=== PATIENT | male | born 1950 | race Caucasian/White ===

== ENCOUNTER 2020-03-13 16:17 | Emergency (ER) | payer MEDICARE, MEDICAID ==
--- NOTE | 2020-03-13 17:21 | EDM.PDOC ---
<Rick Traore - Last Filed: 03/13/20 17:15> ED HPI GENERAL MEDICAL PROBLEM - General Chief Complaint: General Stated Complaint: STOMACH ISSUES Time Seen by Provider: 03/13/20 16:55 Source of Information: Reports: Patient, Family History Limitations: Reports: No Limitations - History of Present Illness INITIAL COMMENTS - FREE TEXT/NARRATIVE: 69-year-old male with COPD, chronic obesity and peripheral edema presents with concerns of increased abdominal girth, shortness of breath and decreased activity tolerance. Today he was at his daughter's when he had a spell of lightheadedness, he appeared ashen and was dizzy so she brought him in. He has not seen a doctor in a long time because he was worried about getting Covid. He is very sedentary, gets very little activity. He quit smoking 5 years ago and has not drank alcohol in 1 month. He has no significant pain but just bending over to feed his cats he gets winded. This morning when he had his lightheaded spell his daughter gave him 3 pieces of chocolate and it "helped". He now feels back to baseline. He has been told that he is borderline diabetic Onset: Gradual Duration: Week(s): (Symptoms have been worsening for weeks) Location: Reports: Chest, Abdomen Worsens with: Reports: Other (Activity or bending over causes increased shortness of breath), Movement Associated Symptoms: Reports: Malaise, Shortness of Breath, Weakness, Other (Had a near syncopal episode today). Denies: Chest Pain, Cough, Fever/Chills - Related Data Allergies Allergy/AdvReac Type Severity Reaction Status Date / Time codeine AdvReac Nausea Verified 03/13/20 16:50 Home Meds: Home Meds Albuterol Sulfate 2.5 mg IH Q6H PRN 03/13/20 [History] Albuterol [Ventolin HFA] 2 puff INH Q4H PRN 03/13/20 [History] Aspirin [Adult Low Dose Aspirin EC] 81 mg PO DAILY 03/13/20 [History] Budesonide [Pulmicort Flexhaler] 2 puff IH BID 03/13/20 [History] Chlorthalidone 25 mg PO DAILY 03/13/20 [History] Fluticasone Propionate [Flonase Allergy Relief] 2 spray INH DAILY 03/13/20 [History] Ipratropium/Albuterol Sulfate [Iprat-Albut 0.5-3(2.5) MG/3 ML] 3 ml INH Q6H PRN 03/13/20 [History] Pravastatin [Pravachol] 80 mg PO BEDTIME 03/13/20 [History] Umeclidinium Brm/Vilanterol Tr [Anoro Ellipta 62.5-25 MCG] 1 each IH DAILY 03/13/20 [History] lisinopriL [Lisinopril] 10 mg PO DAILY 03/13/20 [History] metFORMIN [Glucophage XR] 500 mg PO DAILY 03/13/20 [History] tiZANidine HCl [Zanaflex] 4 mg PO Q8H PRN 03/13/20 [History] Past Medical History HEENT History: Reports: Impaired Vision Cardiovascular History: Reports: High Cholesterol, Hypertension Respiratory History: Reports: COPD, Sleep Apnea Musculoskeletal History: Reports: Fracture Psychiatric History: Reports: Anxiety Endocrine/Metabolic History: Reports: Diabetes, Type II, Obesity/BMI 30+ - Past Surgical History GI Surgical History: Reports: Colonoscopy Musculoskeletal Surgical History: Reports: Knee Replacement Other Musculoskeletal Surgeries/Procedures:: c6-c7 spinal surgery Social & Family History - Recreational Drug Use Recreational Drug Use: No ED ROS GENERAL - Review of Systems Review Of Systems: See Below Constitutional: Reports: Malaise. Denies: Fever, Chills HEENT: Reports: No Symptoms Respiratory: Reports: Shortness of Breath (Especially with activity) Cardiovascular: Denies: Chest Pain, Palpitations GI/Abdominal: Reports: Other (Abdomen feels distended, bloated). Denies: Constipation, Diarrhea, Nausea, Vomiting : Reports: No Symptoms Skin: Reports: No Symptoms Neurological: Reports: No Symptoms ED EXAM, GENERAL - Physical Exam Exam: See Below Free Text/Narrative:: Looks moderately obese, no active dyspnea while sitting still. Exam Limited By: No Limitations General Appearance: Alert, No Apparent Distress Eye Exam: Bilateral Eye: Normal Inspection Head: Atraumatic Respiratory/Chest: No Respiratory Distress, Decreased Breath Sounds (Diffuse decreased breath sounds but they are symmetric and there is no rales or rhonchi at the bases) Cardiovascular: Regular Rate, Rhythm, Tachycardia (Mild tachycardia) GI/Abdominal: Normal Bowel Sounds, Soft, Non-Tender, Distended (Abdomen does feel bloated or distended with palpation), Other (A broad ventral hernia is present). No: Guarding Extremities: Pedal Edema (Patient has 1+ pitting edema to the ankles which is symmetric) Neurological: Alert, Oriented, No Motor/Sensory Deficits Psychiatric: Normal Affect, Normal Mood Skin Exam: Warm, Dry Course - Re-Assessments/Exams Free Text/Narrative Re-Assessment/Exam: 03/13/20 17:22 A [id number] ultrasound was done which showed no intra-abdominal ascites. CBC, CMP, D-dimer were obtained as well as a two-view chest x-ray and flat and upright abdomen. Other than just general deconditioning, pulmonary emboli are concerning. Departure - Departure Disposition: Home, Self-Care 01 Clinical Impression: Dyspnea on exertion - Discharge Information Referrals: Kylah Burton MD [Primary Care Provider] - Forms: ED Department Discharge Additional Instructions: Your work up today did not show anything new going on. See your doctor to get medically cleared to begin an exercise program. Weight loss may benefit you as well. Avoid salt or salty foods. Continue your current meds. Sepsis Event Note (ED) - Evaluation Sepsis Screening Result: No Definite Risk <Jonatan Ely G - Last Filed: 03/13/20 19:22> Course - Vital Signs Last Recorded V/S: Last Vital Signs Temp 36.2 C 03/13/20 16:49 Pulse 107 H 03/13/20 18:36 Resp 20 03/13/20 18:36 BP 108/73 03/13/20 18:36 Pulse Ox 94 L 03/13/20 18:36 - Orders/Labs/Meds Orders: Active Orders 24 hr Category Date Time Status Abdomen 2V AP Flat Upright [CR] Stat Exams 03/13/20 17:10 Taken Chest 2V [CR] Stat Exams 03/13/20 17:10 Taken Iopamidol [Isovue-370 (76%)] Med 03/13/20 18:45 Active 100 ml IV . DIRECTED Sodium Chloride 0.9% [Normal Saline] 100 ml Med 03/13/20 18:45 Active IV ASDIRECTED Medication Orders Sodium Chloride (Normal Saline) 100 mls @ 3 mls/sec IV ASDIRECTED SHAE Last Admin: 03/13/20 18:59 Dose: 3 mls/sec Documented by: CHRISTINA Iopamidol (Isovue-370 (76%)) 100 ml IV . DIRECTED SHAE Last Admin: 03/13/20 18:59 Dose: 100 ml Documented by: CHRISTINA Labs: Laboratory Tests 03/13/20 03/13/20 03/13/20 Range/Units 17:22 17:22 17:33 WBC 8.6 (4.5-11.0) K/uL RBC 5.00 (4.30-5.90) M/uL Hgb 14.9 (12.0-15.0) g/dL Hct 46.8 (40.0-54.0) % MCV 94 (80-98) fL MCH 30 (27-31) pg MCHC 32 (32-36) % Plt Count 191 (150-400) K/uL Neut % (Auto) 63 (36-66) % Lymph % (Auto) 19 L (24-44) % [place] % (Auto) 13 H (2-6) % Eos % (Auto) 5 H (2-4) % Baso % (Auto) 0 (0-1) % D-Dimer, Quantitative 909.08 H (0.0-500.0) ng/mL Sodium 134 L (140-148) mmol/L Potassium 3.9 (3.6-5.2) mmol/L Chloride 98 L (100-108) mmol/L Carbon Dioxide 25 (21-32) mmol/L Anion Gap 14.9 H (5.0-14.0) mmol/L BUN 27 H (7-18) mg/dL Creatinine 1.1 (0.8-1.3) mg/dL Est Cr Clr Drug Dosing 65.17 mL/min Estimated GFR (MDRD) > 60 (>60) Glucose 125 H (74-106) mg/dL Calcium 9.0 (8.5-10.1) mg/dL Total Bilirubin 0.6 (0.2-1.0) mg/dL AST 28 (15-37) U/L ALT 39 (12-78) U/L Alkaline Phosphatase 75 (46-116) U/L Total Protein 7.3 (6.4-8.2) g/dL Albumin 3.8 (3.4-5.0) g/dL Globulin 3.5 (2.3-3.5) g/dL Albumin/Globulin Ratio 1.1 L (1.2-2.2) Meds: Medications Generic Name Dose Route Start Last Admin Trade Name Raghu PRN Reason Stop Dose Admin Sodium Chloride 100 mls @ 3 mls/sec 03/13/20 18:45 03/13/20 18:59 Normal Saline IV 3 mls/sec ASDIRECTED SHAE Administration Iopamidol 100 ml 03/13/20 18:45 03/13/20 18:59 Isovue-370 (76%) IV 100 ml . DIRECTED SHAE Administration Discontinued Medications Generic Name Dose Route Start Last Admin Trade Name Raghu PRN Reason Stop Dose Admin Sodium Chloride 10 ml 03/13/20 18:33 03/13/20 18:59 Saline Flush FLUSH 03/13/20 18:34 10 ml ONETIME ONE Administration - Radiology Interpretation Free Text/Narrative:: CT angio chest-no PE, some emphysema present Departure - Departure Time of Disposition: 19:20 Condition: Fair - Discharge Information *PRESCRIPTION DRUG MONITORING PROGRAM REVIEWED*: No *COPY OF PRESCRIPTION DRUG MONITORING REPORT IN PATIENT VIRGEN: No Sepsis Event Note (ED) - Focused Exam Vital Signs: Vital Signs Temp Pulse Resp BP Pulse Ox 03/13/20 18:36 107 H 20 108/73 94 L 03/13/20 16:49 36.2 C 116 H 20 146/87 H 94 L 03/13/20 16:45 36.2 C 116 H 20 146/87 H 94 L - My Orders Last 24 Hours: My Active Orders 03/13/20 18:45 Iopamidol [Isovue-370 (76%)] 100 ml IV . DIRECTED Sodium Chloride 0.9% [Normal Saline] 100 ml IV ASDIRECTED - Assessment/Plan Last 24 Hours: My Active Orders 03/13/20 18:45 Iopamidol [Isovue-370 (76%)] 100 ml IV . DIRECTED Sodium Chloride 0.9% [Normal Saline] 100 ml IV ASDIRECTED
[2020-03-13] MEDS ORDERED: Sodium Chloride 0.9% 10 ML Syringe FLUSH ONE (18:33)
[2020-03-13] MEDS ORDERED: Sodium Chloride 0.9% 100 ML IV SCH (18:45)
[2020-03-13] MEDS ORDERED: Iopamidol 755 Mg/ML 100 ML Bottle IV SCH (18:45)
--- NOTE | 2020-03-13 19:19 | CRLCT ---
INDICATION: Dyspnea COMPARISON: None TECHNIQUE: : CT examination of the chest was performed with the uneventful intravenous administration of 100 cc of Isovue 370 while thin axial sections were obtained from above the apices of the lungs to the lung bases. Please note that all CT scans at this facility use dose modulation, iterative reconstruction, and/or weight-based dosing when appropriate to reduce radiation dose to as low as reasonably achievable. FINDINGS: : HEART and MEDIASTINUM: The heart size is normal. There is no mediastinal or hilar adenopathy or mass. There is no pericardial effusion. PULMONARY ARTERIAL CIRCULATION: There is no visible intraluminal filling defect to suggest pulmonary embolus. LUNGS: Moderate to severe upper lobe predominant emphysema. Areas of volume loss on the right especially at the medial right base in the medial segment of the right middle lobe. Of a jha the left hemidiaphragm. Associated volume loss at the left base. Evidence of remote granulomatous infection. PLEURAL SPACES: There is no pleural effusion, pneumothorax or pleural based mass. VISUALIZED UPPER ABDOMEN: Macroscopic nodularity of the liver probably due to cirrhosis. Cholelithiasis. Further evaluation liver recommended at a clinically appropriate time OSSEOUS STRUCTURES: Age-appropriate appearance. No acute fracture or destructive process. TUBES and LINES: None. IMPRESSION: 1. There is no finding of pulmonary embolus. 2. Emphysema. 3. Areas of volume loss at the bases. No focal consolidation or mass. 4. Evidence of remote granulomatous infection. Please note that all CT scans at this facility use dose modulation, iterative reconstruction, and/or weight-based dosing when appropriate to reduce radiation dose to as low as reasonably achievable. Dictated by Ankur Downing MD @ Mar 13 2020 7:05PM Signed by Dr. Ankur Downing @ Mar 13 2020 7:18PM
--- NOTE | 2020-03-16 10:54 | CR ---
CHEST: 2 view CLINICAL HISTORY:Dyspnea COMPARISON:None FINDINGS: There is elevation of the left hemidiaphragm. This is likely chronic. There is some patchy density at the left lung base which may represent some chronic atelectasis and/or pleural parenchymal scarring. Heart size and pulmonary vascularity are normal. There are atherosclerotic changes in the aorta. Nodule seen near the dome of the left hemidiaphragm is likely a granulomatous calcification. IMPRESSION: Chronic elevation of the left hemidiaphragm Patchy bibasal atelectasis.
--- NOTE | 2020-03-16 10:55 | CR ---
Abdomen 2V AP Flat Upright CLINICAL HISTORY: Dyspnea FINDINGS: There is chronic elevation left hemidiaphragm. No free air is identified. Intestinal gas pattern is nonacute. There are degenerative changes in the lumbar spine IMPRESSION: Nonspecific intestinal gas pattern
== END 2020-03-13 19:33 | disposition home or self-care (01) ==
LOC: JP.ED 16:17
DX: R06.02 Shortness of breath (principal); R53.1 Weakness; R53.81 Other malaise; E11.9 Type 2 diabetes mellitus without complications; E66.9 Obesity, unspecified; I10 Essential (primary) hypertension; E78.00 Pure hypercholesterolemia, unspecified; J44.9 Chronic obstructive pulmonary disease, unspecified; Z88.5 Allergy status to narcotic agent; Z79.82 Long term (current) use of aspirin; Z79.84 Long term (current) use of oral hypoglycemic drugs; Z79.899 Other long term (current) drug therapy; Z68.35 Body mass index [BMI] 35.0-35.9, adult
CPT/HCPCS: 36415; 71046; 71275; 74019; 80053; 85025; 85379; 99283; 99285; Q9967

== ENCOUNTER 2020-10-09 07:48 | Day surgery (SDC) | payer MEDICARE, MEDICAID ==
[~2020-10-09 07:48] MED LIST: Midazolam 1 MG/ML 2 ML SDV ONE; Propofol 200 MG/20 ML SDV ONE; fentaNYL 100 MCG/2 ML SDV ONE
[2020-10-09] MEDS ORDERED: Sodium Chloride 0.9% 1,000 ML IV SCH (08:30)
--- NOTE | 2020-10-09 14:46 | OR ---
DATE OF PROCEDURE: 10/09/2020 SURGEON: Giovany Galdamez MD PROCEDURES PERFORMED: 1. Esophagogastroduodenoscopy. 2. Colonoscopy. FINDINGS: 1. No gross abnormalities. 2. Normal colonoscopy. COMPLICATIONS: None. SPOOLER OPERATOR: None. PREOPERATIVE DIAGNOSES: 1. Nausea. 2. Screening colonoscopy. POSTOPERATIVE DIAGNOSES: 1. Nausea. 2. Screening colonoscopy. RISKS: The risks, benefits, alternatives, and limitations including, but not limited to infection, bleeding, perforation, false positives, and false negatives were explained to the patient who wished to proceed. PROCEDURE IN DETAIL: The patient was placed in the left lateral decubitus position. The EGD scope was introduced and advanced atraumatically to the second part of the duodenum. No evidence of duodenitis or ulceration was noted. No old or new blood. No significant abnormalities at the GE junction. No retained food. The esophagus was inspected without abnormality. A colonoscopy was then performed next. A digital rectal exam was performed without abnormality. The scope was introduced and advanced atraumatically to the ileocecal valve. A photo was taken of the appendiceal orifice. The scope was brought back through the ascending, transverse, descending colon, and retroflexed. No evidence of old or new blood. No masses. The patient was noted to have a few scattered diverticula. No evidence of diverticulitis or bleeding. No abnormalities on retroflex. Greater than 8 minutes was spent removing the scope. The patient tolerated the procedure well. Giovany Galdamez MD /[id number]
== END 2020-10-09 10:55 | disposition home or self-care (01) ==
LOC: JP.SDS 07:48
PROVIDERS: ATTEND Surgery
DX: Z12.11 Encounter for screening for malignant neoplasm of colon (principal); K57.30 Diverticulosis of large intestine without perforation or abscess without bleeding; I10 Essential (primary) hypertension; R11.0 Nausea; Z88.8 Allergy status to other drugs, medicaments and biological substances; Z86.010 Personal history of colon polyps
CPT/HCPCS: 43235; G0105; J2250; J2704; J3010; J7030

== ENCOUNTER 2023-07-27 08:35 | Observation (INO) | payer MEDICARE, MEDICAID ==
[2023-07-27 09:01] LABS: HEMATOCRIT 41.1 % (38.4-49.7); HEMOGLOBIN 14.2 g/dL (12.9-16.9); MEAN CORPUSCULAR HGB CONC 34.5 g/dL (31.6-35.5); MEAN CORPUSCULAR VOLUME 92.6 fL (81.4-99.0); PLATELET COUNT,PLT 346 K/uL (130-375); RED BLOOD CELL COUNT 4.44 M/uL (4.14-5.76); WHITE BLOOD CELL COUNT,WBC 13.4 K/uL (3.2-11.0)
[2023-07-27 09:17] LABS: INR 1.1; PROTHROMBIN TIME 10.9 sec (9.2-10.6)
[2023-07-27 09:26] LABS: A/G RATIO 0.7 (1.2-2.2); ALANINE AMINOTRANSFERASE,ALT 53 U/L (12-78); ALBUMIN 3.1 g/dL (3.4-5.0); ALKALINE PHOSPHATASE 72 U/L (46-116); ASPARTATE AMNIOTRANSFERASE,AST 31 U/L (15-37); BAND PERCENT MAN 6 % (5-11); BILIRUBIN TOTAL 2.7 mg/dL (0.2-1.0); BLOOD UREA NITROGEN,BUN 30 mg/dL (7-18); CALCIUM 9.2 mg/dL (8.5-10.1); CARBON DIOXIDE,CO2 28 mmol/L (21-32); CHLORIDE,CL 95 mmol/L (100-108); CREATININE 0.7 mg/dL (0.8-1.3); EOSINOPHILS ABSOLUTE MAN 0.27 K/uL (0.00-0.40); EOSINOPHILS PERCENT MAN 2 % (2-4); ESTIMATED GFR 99 mL/min (>60); GLUCOSE RANDOM 119 mg/dL (74-106); LYMPHOCYTES ABSOLUTE MAN 1.07 K/uL (0.8-3.3); LYMPHOCYTES PERCENT MAN 8 % (24-44); MONOCYTES ABSOLUTE MAN 0.54 K/uL (0.20-0.90); MONOCYTES PERCENT MAN 4 % (2-6); NEUTROPHILS ABSOLUTE MAN 10.72 K/uL (1.0-7.6); POTASSIUM,K 3.7 mmol/L (3.6-5.2); PROTEIN TOTAL,TP 7.5 g/dL (6.4-8.2); SEG NEUTROPHILS PERCENT MAN 80 % (36-66); SODIUM,NA 132 mmol/L (140-148)
[2023-07-27 09:36] LABS: ANION GAP 12.7 mmol/L (5.0-14.0)
[2023-07-27 09:50] LABS: APPEARANCE,URINE SLIGHTLY CLOUDY (CLEAR); BILIRUBIN,URINE SMALL (NEGATIVE); COLOR,URINE OTHER (YELLOW); GLUCOSE,URINE NEGATIVE (NEGATIVE); KETONES,URINE 40 mg/dL (NEGATIVE); LEUKOCYTE ESTERASE,URINE NEGATIVE (NEGATIVE); NITRITE,URINE NEGATIVE (NEGATIVE); OCCULT BLOOD,URINE NEGATIVE (NEGATIVE); PROTEIN,URINE NEGATIVE (NEGATIVE); UROBILINOGEN,URINE 0.2 EU/dL (0.2-1.0)
[2023-07-27] MEDS: Sodium Chloride 0.9% 1,000 ML IV SCH ×2 (09:56→16:22)
[2023-07-27 09:59] LABS: AMORPHOUS SEDIMENT,URINE RARE; BACTERIA,URINE RARE; EPITHELIAL CELLS,URINE NOT SEEN; MUCUS,URINE RARE; RBC,URINE 0-5 (0-5); WBC,URINE 0-5 (0-5)
[2023-07-27] MEDS ORDERED: Albuterol 0.083% 2.5 MG/3 ML Neb Soln NEB PRN (15:48)
[2023-07-27] MEDS ORDERED: Ondansetron 4 MG/2 ML SDV IV PRN (15:48)
[2023-07-27] MEDS ORDERED: Magnesium Hydroxide 400 MG/5 ML Susp 30 ML Cup PO PRN (15:48)
[2023-07-27] MEDS ORDERED: Ondansetron 4 MG Tab.DIS PO PRN (15:48)
[2023-07-27] MEDS ORDERED: Sennosides/Docusate Sodium 50-8.6 MG Tab PO PRN (15:48)
[2023-07-27] MEDS ORDERED: Non-Formulary Medication 1 Each (Budesonide [Pulmicort Flexhaler] 180 MCG Inhaler) IH SCH (21:00)
[2023-07-27] MEDS: oxyCODONE 5 MG Tab PO PRN (21:27)
[2023-07-27] MEDS: Acetaminophen 325 MG Tab PO PRN (21:27)
[2023-07-27] MEDS: Budesonide 0.5 MG/2 ML Neb Susp INH ONE (21:28)
[2023-07-28 05:06] LABS: HEMOGLOBIN 13.7 g/dL (12.9-16.9); MEAN CORPUSCULAR HEMOGLOBIN 31.5 pg (31.6-35.5); MEAN CORPUSCULAR HGB CONC 33.4 g/dL (31.6-35.5); MEAN CORPUSCULAR VOLUME 94.3 fL (81.4-99.0); RED BLOOD CELL COUNT 4.35 M/uL (4.14-5.76); WHITE BLOOD CELL COUNT,WBC 11.6 K/uL (3.2-11.0)
[2023-07-28 05:16] LABS: A/G RATIO 0.7 (1.2-2.2); ALANINE AMINOTRANSFERASE,ALT 42 U/L (12-78); ALBUMIN 2.8 g/dL (3.4-5.0); ALKALINE PHOSPHATASE 66 U/L (46-116); ASPARTATE AMNIOTRANSFERASE,AST 33 U/L (15-37); BILIRUBIN TOTAL 1.7 mg/dL (0.2-1.0); BLOOD UREA NITROGEN,BUN 25 mg/dL (7-18); CALCIUM 8.5 mg/dL (8.5-10.1); CARBON DIOXIDE,CO2 28 mmol/L (21-32); CHLORIDE,CL 98 mmol/L (100-108); CREATININE 0.6 mg/dL (0.8-1.3); EST CRCL DRUG DOSING (CG) 110.83 mL/min; ESTIMATED GFR 104 mL/min (>60); GLUCOSE RANDOM 108 mg/dL (74-106); PROTEIN TOTAL,TP 6.8 g/dL (6.4-8.2); SODIUM,NA 132 mmol/L (140-148)
[2023-07-28] MEDS ORDERED: Sennosides 8.6 MG Tab PO SCH (09:00)
[2023-07-28] MEDS ORDERED: Magnesium Oxide 400 MG Tab PO SCH (09:00)
[2023-07-28] MEDS ORDERED: Non-Formulary Medication 1 Each (Omeprazole [Omeprazole] 20 MG Cap.Cr) PO SCH (09:00)
[2023-07-28] MEDS ORDERED: Aspirin 81 MG Tab.EC PO SCH (09:00)
[2023-07-28] MEDS ORDERED: Escitalopram 10 MG Tab PO SCH (09:00)
[2023-07-28] MEDS ORDERED: Lisinopril 10 MG Tab PO SCH (09:00)
[2023-07-28] MEDS ORDERED: Non-Formulary Medication 1 Each (Umeclidinium Brm/Vilanterol Tr [Anoro Ellipta 62.5-25 Mcg INH SCH (09:00)
== END 2023-07-28 08:30 | disposition home or self-care (01) ==
LOC: JP.ED 08:35 → JP.MS 14:43
PROVIDERS: ADMIT Internal Medicine; ATTEND Internal Medicine
DX: R53.1 Weakness (principal); M48.061 Spinal stenosis, lumbar region without neurogenic claudication; I10 Essential (primary) hypertension; E11.9 Type 2 diabetes mellitus without complications; J44.9 Chronic obstructive pulmonary disease, unspecified; K21.9 Gastro-esophageal reflux disease without esophagitis; F32.A Depression, unspecified; Z79.899 Other long term (current) drug therapy; Z88.5 Allergy status to narcotic agent
CPT/HCPCS: 36415; 51702; 71045; 72040; 72125; 76377; 80053; 81001; 82550; 85025; 85027; 85610; 93005; 94640; 96360; 99285; A9270; J7030; 96361; G0378

== ENCOUNTER 2023-10-10 15:56 | Inpatient (IN) | payer MEDICARE, MEDICAID ==
[2023-10-10 16:57] LABS: BASOPHILS ABSOLUTE AUTO 0.04 K/uL (0.00-0.10); BASOPHILS PERCENT AUTO 0.5 % (0.1-1.3); EOSINOPHILS ABSOLUTE AUTO 0.71 K/uL (0.00-0.40); EOSINOPHILS PERCENT AUTO 9.1 % (0.0-5.4); HEMATOCRIT 37.4 % (38.4-49.7); HEMOGLOBIN 12.8 g/dL (12.9-16.9); IMMATURE GRAN ABSOLUTE AUTO 0.03 K/uL (0.00-0.23); IMMATURE GRAN PERCENT AUTO 0.4 % (0.0-0.7); LYMPHOCYTES PERCENT AUTO 17.9 % (11.4-47.7); MEAN CORPUSCULAR HEMOGLOBIN 30.3 pg (31.6-35.5); MEAN CORPUSCULAR HGB CONC 34.2 g/dL (31.6-35.5); MEAN CORPUSCULAR VOLUME 88.4 fL (81.4-99.0); MONOCYTES ABSOLUTE AUTO 1.01 K/uL (0.20-0.90); MONOCYTES PERCENT AUTO 12.9 % (3.3-12.6); NEUTROPHILS ABSOLUTE AUTO 4.62 K/uL (1.0-7.6); NEUTROPHILS PERCENT AUTO 59.2 % (40.0-78.1); PLATELET COUNT,PLT 231 K/uL (130-375); RED BLOOD CELL COUNT 4.23 M/uL (4.14-5.76); WHITE BLOOD CELL COUNT,WBC 7.8 K/uL (3.2-11.0)
[2023-10-10 17:17] LABS: ALANINE AMINOTRANSFERASE,ALT 28 U/L (12-78); ALBUMIN 3.6 g/dL (3.4-5.0); ALKALINE PHOSPHATASE 77 U/L (46-116); ASPARTATE AMNIOTRANSFERASE,AST 31 U/L (15-37); BLOOD UREA NITROGEN,BUN 8 mg/dL (7-18); CREATININE 0.9 mg/dL (0.8-1.3); EST CRCL DRUG DOSING (CG) 73.89 mL/min; ESTIMATED GFR 92 mL/min (>60); GLUCOSE RANDOM 112 mg/dL (74-106); PROTEIN TOTAL,TP 7.2 g/dL (6.4-8.2)
[2023-10-10 17:22] LABS: CARBON DIOXIDE,CO2 24 mmol/L (21-32); CHLORIDE,CL 97 mmol/L (100-108); POTASSIUM,K 3.7 mmol/L (3.6-5.2); SODIUM,NA 132 mmol/L (140-148)
[2023-10-10 17:23] LABS: ANION GAP 14.7 mmol/L (5.0-14.0)
[2023-10-10 17:49] LABS: APPEARANCE,URINE CLEAR (CLEAR); BILIRUBIN,URINE NEGATIVE (NEGATIVE); COLOR,URINE YELLOW (YELLOW); GLUCOSE,URINE NEGATIVE (NEGATIVE); KETONES,URINE NEGATIVE (NEGATIVE); LEUKOCYTE ESTERASE,URINE NEGATIVE (NEGATIVE); NITRITE,URINE NEGATIVE (NEGATIVE); OCCULT BLOOD,URINE TRACE-LYSED (NEGATIVE); PH,URINE 6.5 (5.0-8.0); PROTEIN,URINE NEGATIVE (NEGATIVE); UROBILINOGEN,URINE 0.2 EU/dL (0.2-1.0)
[2023-10-10 17:53] LABS: AMORPHOUS SEDIMENT,URINE NOT SEEN; BACTERIA,URINE NOT SEEN; EPITHELIAL CELLS,URINE NOT SEEN; MUCUS,URINE NOT SEEN; RBC,URINE 0-5 (0-5); WBC,URINE 0-5 (0-5)
[2023-10-10] MEDS: HYDROmorphone 1 MG/ML Syringe IM ONE (18:56)
[2023-10-10] MEDS ORDERED: Sodium Chloride 0.9% 10 ML Syringe FLUSH PRN (20:23)
[2023-10-10] MEDS ORDERED: Albuterol 0.083% 2.5 MG/3 ML Neb Soln INH PRN (20:50)
[2023-10-10] MEDS ORDERED: Melatonin 3 MG Tab PO PRN (20:50)
[2023-10-10] MEDS ORDERED: Naloxone 0.4 MG/ML SDV IVPUSH PRN (20:50)
[2023-10-10] MEDS ORDERED: Ondansetron 4 MG/2 ML SDV IV PRN (20:50)
[2023-10-10] MEDS: HYDROmorphone 1 MG/ML Syringe IVPUSH PRN (21:11)
[2023-10-10] MEDS: oxyCODONE 5 MG Tab PO PRN (21:41)
[2023-10-10] MEDS: tiZANidine 2 MG Tab PO PRN (21:41)
[2023-10-10] MEDS: Pravastatin 20 MG Tab PO SCH (21:41)
[2023-10-10] MEDS: Enoxaparin 40 MG/0.4 ML Syringe SUBCUT SCH (21:42)
[2023-10-10] MEDS: Furosemide 40 MG/4 ML VIAL IVPUSH ONE (21:42)
[2023-10-10] MEDS: Ondansetron 4 MG Tab.DIS PO PRN (21:49)
[2023-10-10] MEDS: Mometasone Furoate HFA 200 mcg/Puff 13 GM Inhaler INH SCH (21:54)
[2023-10-11] MEDS: Acetaminophen 325 MG Tab PO PRN (05:05)
[2023-10-11 05:24] LABS: HEMATOCRIT 39.4 % (38.4-49.7); HEMOGLOBIN 13.4 g/dL (12.9-16.9); MEAN CORPUSCULAR HEMOGLOBIN 30.2 pg (31.6-35.5); MEAN CORPUSCULAR VOLUME 88.7 fL (81.4-99.0); RED BLOOD CELL COUNT 4.44 M/uL (4.14-5.76); WHITE BLOOD CELL COUNT,WBC 8.2 K/uL (3.2-11.0)
[2023-10-11 05:38] LABS: CALCIUM 9.1 mg/dL (8.5-10.1); CREATININE 1.1 mg/dL (0.8-1.3); EST CRCL DRUG DOSING (CG) 60.45 mL/min; POTASSIUM,K 3.9 mmol/L (3.6-5.2)
[2023-10-11 06:56] LABS: ANION GAP 16.9 mmol/L (5.0-14.0)
[2023-10-11] MEDS ORDERED: HYDROmorphone 0.5 MG/0.5 ML Syringe IVPUSH PRN (07:04)
[2023-10-11] MEDS: Pantoprazole 40 MG Tab.CR PO SCH (07:52)
[2023-10-11] MEDS: Tiotropium BR/Olodaterol HCL 4 GM Inhalation Spray 2.5mcg/1 dose; 10 doses INH SCH (08:20)
[2023-10-11] MEDS ORDERED: Tiotropium BR/Olodaterol HCL 4 GM Inhalation Spray 2.5mcg/1 dose; 10 doses INH SCH (09:00)
[2023-10-11] MEDS: Aspirin 81 MG Tab.EC PO SCH (09:04)
[2023-10-11] MEDS: Escitalopram 10 MG Tab PO SCH (09:04)
[2023-10-11] MEDS: Magnesium Oxide 400 MG Tab PO SCH (09:04)
[2023-10-11] MEDS: Lisinopril 10 MG Tab PO SCH (09:04)
[2023-10-11] MEDS: Mometasone Furoate Powder 220 MCG/Puff 14 Dose Inhaler INH SCH (10:27)
[2023-10-11] MEDS: Furosemide 40 MG/4 ML VIAL IVPUSH ONE (11:40)
[2023-10-11] MEDS: PULMICORT FLEXHALER INH SCH (12:17)
[2023-10-11] MEDS: ANORO ELLIPTA INH SCH (12:17)
[2023-10-11] MEDS: Furosemide 40 MG/4 ML VIAL IVPUSH SCH (19:34)
[2023-10-11] MEDS: Haloperidol 1 MG Tab PO PRN (20:52)
[2023-10-11] MEDS: Melatonin 3 MG Tab PO SCH (20:59)
[2023-10-12 08:39] LABS: CALCIUM 8.8 mg/dL (8.5-10.1); CREATININE 1.1 mg/dL (0.8-1.3); EST CRCL DRUG DOSING (CG) 60.45 mL/min; MAGNESIUM 1.5 mg/dL (1.8-2.4); POTASSIUM,K 3.8 mmol/L (3.6-5.2)
[2023-10-12 08:56] LABS: ANION GAP 15.8 mmol/L (5.0-14.0)
[2023-10-12] MEDS: Magnesium Sulfate/Water 2 GM in Premix Bag 1 BAG IV SCH (10:46)
[2023-10-12] MEDS: Potassium Chloride 20 MEQ Tab.ER PO ONE (10:47)
[2023-10-12] MEDS: Magnesium Oxide 400 MG Tab PO SCH (10:47)
[2023-10-12] MEDS ORDERED: Divalproex Sodium Delayed-Release 250 MG Tab.CR PO SCH (12:48)
[2023-10-12] MEDS: Divalproex Sodium Delayed-Release 250 MG Tab.CR PO ONE (15:39)
[2023-10-12] MEDS: Sennosides/Docusate Sodium 50-8.6 MG Tab PO PRN (17:59)
[2023-10-12] MEDS: Divalproex Sodium Delayed-Release 250 MG Tab.CR PO SCH (20:13)
[2023-10-13 06:47] LABS: CALCIUM 8.8 mg/dL (8.5-10.1); CREATININE 1.1 mg/dL (0.8-1.3); EST CRCL DRUG DOSING (CG) 60.45 mL/min; POTASSIUM,K 3.8 mmol/L (3.6-5.2)
[2023-10-13 06:54] LABS: ANION GAP 12.8 mmol/L (5.0-14.0)
== END 2023-10-13 12:55 | disposition home or self-care (01) | DRG 291 ==
LOC: JP.ED 15:56 → JP.MS 20:02 → OBSVTOIN 10-11 10:32
PROVIDERS: ADMIT Registered Nurse; ATTEND Hospitalist
DX: I11.0 Hypertensive heart disease with heart failure (principal); I50.33 Acute on chronic diastolic (congestive) heart failure; H54.7 Unspecified visual loss; R60.0 Localized edema; R53.1 Weakness; M54.50 Low back pain, unspecified; F41.9 Anxiety disorder, unspecified; F32.A Depression, unspecified; G89.29 Other chronic pain; Z96.659 Presence of unspecified artificial knee joint; I10 Essential (primary) hypertension; E78.00 Pure hypercholesterolemia, unspecified; M48.061 Spinal stenosis, lumbar region without neurogenic claudication; G47.33 Obstructive sleep apnea (adult) (pediatric); J44.9 Chronic obstructive pulmonary disease, unspecified; Z98.890 Other specified postprocedural states; Z79.51 Long term (current) use of inhaled steroids; K21.9 Gastro-esophageal reflux disease without esophagitis; E66.9 Obesity, unspecified; Z87.81 Personal history of (healed) traumatic fracture; Z68.29 Body mass index [BMI] 29.0-29.9, adult; Z68.30 Body mass index [BMI] 30.0-30.9, adult; Z87.891 Personal history of nicotine dependence; Z86.16 Personal history of COVID-19; Z79.899 Other long term (current) drug therapy; Z79.82 Long term (current) use of aspirin; Z88.5 Allergy status to narcotic agent
CPT/HCPCS: 36415; 80048; 80053; 81001; 83735; 85025; 85027; 85379; 93306; 93970; 94640; 96372; 96374; 96375; 97110-GP; 97161-GP; 97165-GO; 97530-GP; 99222; 99232; 99238; 99285; A9270-GY; G0378; J1170; J1650; J1940; J3475; J3490; Q0162

== ENCOUNTER 2023-12-01 04:06 | Emergency (ER) | payer MEDICARE, MEDICAID ==
[2023-12-01 04:33] LABS: BASOPHILS ABSOLUTE AUTO 0.03 K/uL (0.00-0.10); BASOPHILS PERCENT AUTO 0.3 % (0.1-1.3); EOSINOPHILS ABSOLUTE AUTO 0.51 K/uL (0.00-0.40); EOSINOPHILS PERCENT AUTO 5.1 % (0.0-5.4); HEMATOCRIT 34.9 % (38.4-49.7); HEMOGLOBIN 11.9 g/dL (12.9-16.9); IMMATURE GRAN ABSOLUTE AUTO 0.04 K/uL (0.00-0.23); IMMATURE GRAN PERCENT AUTO 0.4 % (0.0-0.7); LYMPHOCYTES ABSOLUTE AUTO 1.53 K/uL (0.8-3.3); LYMPHOCYTES PERCENT AUTO 15.4 % (11.4-47.7); MEAN CORPUSCULAR HEMOGLOBIN 28.7 pg (31.6-35.5); MEAN CORPUSCULAR HGB CONC 34.1 g/dL (31.6-35.5); MEAN CORPUSCULAR VOLUME 84.1 fL (81.4-99.0); MONOCYTES ABSOLUTE AUTO 0.96 K/uL (0.20-0.90); MONOCYTES PERCENT AUTO 9.7 % (3.3-12.6); NEUTROPHILS ABSOLUTE AUTO 6.86 K/uL (1.0-7.6); NEUTROPHILS PERCENT AUTO 69.1 % (40.0-78.1); PLATELET COUNT,PLT 246 K/uL (130-375); RED BLOOD CELL COUNT 4.15 M/uL (4.14-5.76); WHITE BLOOD CELL COUNT,WBC 9.9 K/uL (3.2-11.0)
[2023-12-01 04:58] LABS: BLOOD UREA NITROGEN,BUN 15 mg/dL (7-18); CALCIUM 8.9 mg/dL (8.5-10.1); CARBON DIOXIDE,CO2 29 mmol/L (21-32); CHLORIDE,CL 99 mmol/L (100-108); CREATININE 1.2 mg/dL (0.8-1.3); ESTIMATED GFR 65 mL/min (>60); GLUCOSE RANDOM 112 mg/dL (74-106); SODIUM,NA 134 mmol/L (140-148)
== END 2023-12-01 07:10 | disposition home or self-care (01) ==
LOC: JP.ED 04:06
DX: M48.07 Spinal stenosis, lumbosacral region (principal); R53.1 Weakness; I10 Essential (primary) hypertension; K21.9 Gastro-esophageal reflux disease without esophagitis; E78.00 Pure hypercholesterolemia, unspecified; E66.9 Obesity, unspecified; Z88.8 Allergy status to other drugs, medicaments and biological substances; Z79.82 Long term (current) use of aspirin; Z79.899 Other long term (current) drug therapy
CPT/HCPCS: 36415; 80048; 85025; 99285

== ENCOUNTER 2023-12-13 02:10 | Emergency (ER) | payer MEDICARE, MEDICAID ==
[2023-12-13 02:25] LABS: BASOPHILS ABSOLUTE AUTO 0.04 K/uL (0.00-0.10); BASOPHILS PERCENT AUTO 0.5 % (0.1-1.3); EOSINOPHILS ABSOLUTE AUTO 0.39 K/uL (0.00-0.40); EOSINOPHILS PERCENT AUTO 4.8 % (0.0-5.4); HEMATOCRIT 34.4 % (38.4-49.7); HEMOGLOBIN 11.6 g/dL (12.9-16.9); IMMATURE GRAN ABSOLUTE AUTO 0.04 K/uL (0.00-0.23); IMMATURE GRAN PERCENT AUTO 0.5 % (0.0-0.7); LYMPHOCYTES ABSOLUTE AUTO 1.29 K/uL (0.8-3.3); LYMPHOCYTES PERCENT AUTO 15.8 % (11.4-47.7); MEAN CORPUSCULAR HEMOGLOBIN 28.3 pg (31.6-35.5); MEAN CORPUSCULAR HGB CONC 33.7 g/dL (31.6-35.5); MEAN CORPUSCULAR VOLUME 83.9 fL (81.4-99.0); MONOCYTES ABSOLUTE AUTO 0.74 K/uL (0.20-0.90); MONOCYTES PERCENT AUTO 9.1 % (3.3-12.6); NEUTROPHILS ABSOLUTE AUTO 5.65 K/uL (1.0-7.6); NEUTROPHILS PERCENT AUTO 69.3 % (40.0-78.1); PLATELET COUNT,PLT 241 K/uL (130-375); WHITE BLOOD CELL COUNT,WBC 8.2 K/uL (3.2-11.0)
[2023-12-13 02:38] LABS: CALCIUM 9.1 mg/dL (8.5-10.1); CREATININE 0.9 mg/dL (0.8-1.3); EST CRCL DRUG DOSING (CG) 72.83 mL/min; POTASSIUM,K 4.1 mmol/L (3.6-5.2)
[2023-12-13 02:49] LABS: ANION GAP 14.1 mmol/L (5.0-14.0)
[2023-12-13 05:39] LABS: APPEARANCE,URINE CLEAR (CLEAR); BILIRUBIN,URINE NEGATIVE (NEGATIVE); COLOR,URINE YELLOW (YELLOW); GLUCOSE,URINE NEGATIVE (NEGATIVE); KETONES,URINE NEGATIVE (NEGATIVE); LEUKOCYTE ESTERASE,URINE NEGATIVE (NEGATIVE); NITRITE,URINE NEGATIVE (NEGATIVE); OCCULT BLOOD,URINE TRACE-INTACT (NEGATIVE); PROTEIN,URINE NEGATIVE (NEGATIVE); UROBILINOGEN,URINE 0.2 EU/dL (0.2-1.0)
[2023-12-13 05:57] LABS: AMORPHOUS SEDIMENT,URINE NOT SEEN; BACTERIA,URINE FEW; EPITHELIAL CELLS,URINE RARE; MUCUS,URINE RARE; RBC,URINE 0-5 (0-5); WBC,URINE 0-5 (0-5)
== END 2023-12-13 08:25 | disposition home or self-care (01) ==
LOC: JP.ED 02:10
DX: G54.4 Lumbosacral root disorders, not elsewhere classified (principal); I10 Essential (primary) hypertension; E78.00 Pure hypercholesterolemia, unspecified; J44.9 Chronic obstructive pulmonary disease, unspecified; K21.9 Gastro-esophageal reflux disease without esophagitis; Z86.16 Personal history of COVID-19; Z88.5 Allergy status to narcotic agent; Z79.51 Long term (current) use of inhaled steroids; Z79.82 Long term (current) use of aspirin; Z79.899 Other long term (current) drug therapy
CPT/HCPCS: 36415; 80048; 81001; 85025; 99284

== ENCOUNTER 2023-12-26 02:22 | Emergency (ER) | payer MEDICARE, MEDICAID ==
[2023-12-26 02:58] LABS: BASOPHILS ABSOLUTE AUTO 0.04 K/uL (0.00-0.10); BASOPHILS PERCENT AUTO 0.5 % (0.1-1.3); EOSINOPHILS ABSOLUTE AUTO 0.49 K/uL (0.00-0.40); EOSINOPHILS PERCENT AUTO 6.1 % (0.0-5.4); HEMATOCRIT 34.2 % (38.4-49.7); HEMOGLOBIN 11.3 g/dL (12.9-16.9); IMMATURE GRAN ABSOLUTE AUTO 0.04 K/uL (0.00-0.23); IMMATURE GRAN PERCENT AUTO 0.5 % (0.0-0.7); LYMPHOCYTES ABSOLUTE AUTO 1.11 K/uL (0.8-3.3); LYMPHOCYTES PERCENT AUTO 13.8 % (11.4-47.7); MEAN CORPUSCULAR HEMOGLOBIN 28.1 pg (31.6-35.5); MEAN CORPUSCULAR VOLUME 85.1 fL (81.4-99.0); MONOCYTES ABSOLUTE AUTO 0.85 K/uL (0.20-0.90); MONOCYTES PERCENT AUTO 10.6 % (3.3-12.6); NEUTROPHILS ABSOLUTE AUTO 5.49 K/uL (1.0-7.6); NEUTROPHILS PERCENT AUTO 68.5 % (40.0-78.1); PLATELET COUNT,PLT 218 K/uL (130-375); RED BLOOD CELL COUNT 4.02 M/uL (4.14-5.76)
[2023-12-26 03:13] LABS: ANION GAP 15.9 mmol/L (5.0-14.0); CALCIUM 9.2 mg/dL (8.5-10.1); CREATININE 0.9 mg/dL (0.8-1.3); EST CRCL DRUG DOSING (CG) 72.83 mL/min; MAGNESIUM 1.7 mg/dL (1.8-2.4); POTASSIUM,K 3.9 mmol/L (3.6-5.2)
[2023-12-26] MEDS: Magnesium Oxide 400 MG Tab PO ONE (05:14)
== END 2023-12-26 05:29 | disposition home or self-care (01) ==
LOC: JP.ED 02:22
DX: R53.1 Weakness (principal); R25.2 Cramp and spasm; I11.0 Hypertensive heart disease with heart failure; I50.9 Heart failure, unspecified; E78.00 Pure hypercholesterolemia, unspecified; J44.9 Chronic obstructive pulmonary disease, unspecified; K21.9 Gastro-esophageal reflux disease without esophagitis; Z87.891 Personal history of nicotine dependence; Z79.82 Long term (current) use of aspirin; Z79.899 Other long term (current) drug therapy
CPT/HCPCS: 36415; 80048; 83735; 85025; 99283; A9270

== ENCOUNTER 2023-12-27 09:28 | Inpatient (IN) | payer MEDICARE, MEDICAID ==
[2023-12-27] MEDS: HYDROmorphone 1 MG/ML Syringe IVPUSH ONE (17:13)
[2023-12-27] MEDS ORDERED: Albuterol 0.083% 2.5 MG/3 ML Neb Soln NEB PRN (17:16)
[2023-12-27] MEDS ORDERED: Ondansetron 4 MG/2 ML SDV IV PRN (17:16)
[2023-12-27] MEDS ORDERED: tiZANidine 2 MG Tab PO PRN (17:16)
[2023-12-27] MEDS ORDERED: Trolamine Salicylate/Aloe Vera 10% Crm 85 GM Tube TOP PRN (17:16)
[2023-12-27] MEDS ORDERED: HYDROmorphone 0.5 MG/0.5 ML Syringe IVPUSH PRN (17:16)
[2023-12-27] MEDS ORDERED: Magnesium Hydroxide 400 MG/5 ML Susp 30 ML Cup PO PRN (17:16)
[2023-12-27] MEDS ORDERED: Ondansetron 4 MG Tab.DIS PO PRN (17:16)
[2023-12-27] MEDS ORDERED: Sennosides/Docusate Sodium 50-8.6 MG Tab PO PRN (17:16)
[2023-12-27] MEDS: oxyCODONE 5 MG Tab PO PRN (19:13)
[2023-12-27] MEDS: Albuterol/Ipratropium 3.0-0.5 MG/3 ML Neb Soln NEB SCH (21:19)
[2023-12-27] MEDS: Gabapentin 100 MG Cap PO SCH (21:22)
[2023-12-27] MEDS: Melatonin 3 MG Tab PO SCH (21:23)
[2023-12-27] MEDS: Acetaminophen 500 MG Tab PO SCH (21:23)
[2023-12-27] MEDS: Pravastatin 20 MG Tab PO SCH (21:23)
[2023-12-28 06:13] LABS: HEMATOCRIT 34.9 % (38.4-49.7); HEMOGLOBIN 11.4 g/dL (12.9-16.9); MEAN CORPUSCULAR HEMOGLOBIN 27.8 pg (31.6-35.5); MEAN CORPUSCULAR HGB CONC 32.7 g/dL (31.6-35.5); MEAN CORPUSCULAR VOLUME 85.1 fL (81.4-99.0); RED BLOOD CELL COUNT 4.1 M/uL (4.14-5.76); WHITE BLOOD CELL COUNT,WBC 6.1 K/uL (3.2-11.0)
[2023-12-28 06:23] LABS: C-REACTIVE PROTEIN 1.52 mg/dL (<0.50); CALCIUM 9.3 mg/dL (8.5-10.1); CREATININE 0.9 mg/dL (0.8-1.3); EST CRCL DRUG DOSING (CG) 73.1 mL/min; POTASSIUM,K 3.9 mmol/L (3.6-5.2)
[2023-12-28 06:28] LABS: ANION GAP 13.9 mmol/L (5.0-14.0)
[2023-12-28] MEDS: Tiotropium BR/Olodaterol HCL 4 GM Inhalation Spray 2.5mcg/1 dose; 10 doses INH SCH (07:00)
[2023-12-28] MEDS: Mometasone Furoate Powder 220 MCG/Puff 14 Dose Inhaler INH SCH (07:00)
[2023-12-28] MEDS: Pantoprazole 40 MG Tab.CR PO SCH (08:01)
[2023-12-28] MEDS: Lisinopril 2.5 MG Tab PO SCH (08:01)
[2023-12-28] MEDS: Escitalopram 10 MG Tab PO SCH (08:02)
[2023-12-28] MEDS: Furosemide 40 MG Tab PO SCH (08:02)
[2023-12-28] MEDS: Aspirin 81 MG Tab.EC PO SCH (08:04)
== END 2023-12-28 10:50 | DRG 552 ==
LOC: JP.ED 09:28 → JP.MS 16:29
PROVIDERS: ADMIT Internal Medicine; ATTEND Internal Medicine
DX: M48.061 Spinal stenosis, lumbar region without neurogenic claudication (principal); R53.1 Weakness; I50.32 Chronic diastolic (congestive) heart failure; I50.9 Heart failure, unspecified; R29.898 Other symptoms and signs involving the musculoskeletal system; J44.9 Chronic obstructive pulmonary disease, unspecified; J21.9 Acute bronchiolitis, unspecified; R29.6 Repeated falls; H54.7 Unspecified visual loss; E78.00 Pure hypercholesterolemia, unspecified; I11.0 Hypertensive heart disease with heart failure; Z68.28 Body mass index [BMI] 28.0-28.9, adult; K21.9 Gastro-esophageal reflux disease without esophagitis; F41.9 Anxiety disorder, unspecified; F32.A Depression, unspecified; E66.9 Obesity, unspecified; Z96.659 Presence of unspecified artificial knee joint; M54.50 Low back pain, unspecified; W19.XXXA Unspecified fall, initial encounter; J43.9 Emphysema, unspecified; M48.02 Spinal stenosis, cervical region; Z88.5 Allergy status to narcotic agent; Z79.82 Long term (current) use of aspirin; Z79.51 Long term (current) use of inhaled steroids; Z79.899 Other long term (current) drug therapy; Z87.81 Personal history of (healed) traumatic fracture; Z68.27 Body mass index [BMI] 27.0-27.9, adult; Z98.1 Arthrodesis status; Z98.890 Other specified postprocedural states
CPT/HCPCS: 36415; 72100; 72148; 80048; 85027; 86140; 94640; 99222; 99239; 99285; A9270-GY; J1171; J7620

== ENCOUNTER 2024-06-10 07:00 | Day surgery (SDC) | payer MEDICARE, MEDICAID ==
[2024-06-10] MEDS ORDERED: Glycopyrrolate 0.2 MG/ML 5 ML MDV ONE (07:05)
[2024-06-10] MEDS ORDERED: Dexamethasone 4 MG/ML SDV ONE (07:05)
[2024-06-10] MEDS ORDERED: Rocuronium 50 MG/5 ML Vial ONE (07:05)
[2024-06-10] MEDS ORDERED: Propofol 200 MG/20 ML SDV ONE (07:05)
[2024-06-10] MEDS ORDERED: Bupivacaine 0.5% 30 ML SDV ONE ×3 (07:05→07:09)
[2024-06-10] MEDS ORDERED: Neostigmine Methylsulfate 10 MG/10 ML MDV ONE (07:05)
[2024-06-10] MEDS ORDERED: Succinylcholine 200 MG/10 ML MDV ONE (07:05)
[2024-06-10] MEDS ORDERED: Ondansetron 4 MG/2 ML SDV ONE (07:05)
[2024-06-10] MEDS ORDERED: fentaNYL 250 MCG/5 ML SDV ONE (07:07)
[2024-06-10 07:51] LABS: HEMATOCRIT 40.8 % (38.4-49.7); HEMOGLOBIN 12.6 g/dL (12.9-16.9); MEAN CORPUSCULAR HEMOGLOBIN 26.5 pg (31.6-35.5); MEAN CORPUSCULAR HGB CONC 30.9 g/dL (31.6-35.5); MEAN CORPUSCULAR VOLUME 85.7 fL (81.4-99.0); RED BLOOD CELL COUNT 4.76 M/uL (4.14-5.76)
[2024-06-10] MEDS ORDERED: ceFAZolin 2 GM in Sodium Chloride 0.9% 50 ML IV ONE (08:00)
[2024-06-10 08:04] LABS: CALCIUM 9.2 mg/dL (8.5-10.1); EST CRCL DRUG DOSING (CG) 65.55 mL/min; POTASSIUM,K 3.9 mmol/L (3.6-5.2)
[2024-06-10 08:05] LABS: WHITE BLOOD CELL COUNT,WBC 5.7 K/uL (3.2-11.0)
[2024-06-10] MEDS: Nozin Nasal Sanitizer NASBOTH SCH ×2 (08:05→21:52)
[2024-06-10 08:08] LABS: ANION GAP 11.9 mmol/L (5.0-14.0)
[2024-06-10] MEDS: Lactated Ringers 1,000 ML IV SCH (08:28)
[2024-06-10] MEDS: ceFAZolin 2 GM in Premix Bag 1 BAG IV ONE (08:35)
[2024-06-10] MEDS ORDERED: Albuterol 6.7 GM Inhaler INH PRN (08:46)
[2024-06-10] MEDS ORDERED: Trolamine Salicylate/Aloe Vera 10% Crm 85 GM Tube TOP PRN (08:46)
[2024-06-10] MEDS ORDERED: Albuterol 0.083% 2.5 MG/3 ML Neb Soln INH PRN (08:46)
[2024-06-10] MEDS ORDERED: oxyCODONE 5 MG Tab PO PRN (08:48)
[2024-06-10] MEDS ORDERED: Ondansetron 4 MG/2 ML SDV IVPUSH PRN (08:50)
[2024-06-10] MEDS ORDERED: Docusate Sodium 100 MG Cap PO PRN (08:50)
[2024-06-10] MEDS ORDERED: ePHEDrine 50 MG/ML SDV ONE (09:44)
[2024-06-10] MEDS ORDERED: Lactated Ringers 1,000 ML ONE (09:46)
[2024-06-10] MEDS ORDERED: Polyethylene Glycol 3350 Powder 17 GM Packet PO PRN (12:00)
[2024-06-10] MEDS: Sodium Chloride 0.9% 1,000 ML IV SCH (14:22)
[2024-06-10] MEDS: ceFAZolin 2 GM in Premix Bag 1 BAG IV SCH (15:57)
[2024-06-10] MEDS: Ketorolac 15 MG/ML SDV IVPUSH PRN (15:58)
[2024-06-10] MEDS: Acetaminophen 325 MG Tab PO SCH (15:59)
[2024-06-10] MEDS: Sennosides/Docusate Sodium 50-8.6 MG Tab PO SCH (16:00)
[2024-06-10] MEDS: Ferrous Sulfate 325 MG Tab PO SCH (16:00)
[2024-06-10] MEDS: oxyCODONE 5 MG Tab PO PRN (18:27)
[2024-06-10] MEDS: Mometasone Furoate Powder 220 MCG/Puff 14 Dose Inhaler INH SCH (21:57)
[2024-06-10] MEDS: Cyclobenzaprine 10 MG Tab PO SCH (22:01)
[2024-06-10] MEDS: hydrOXYzine HCl 10 MG Tab PO SCH (22:01)
[2024-06-10] MEDS: Pravastatin 20 MG Tab PO SCH (22:02)
[2024-06-10] MEDS: Melatonin 3 MG Tab PO SCH (22:02)
[2024-06-11 05:51] LABS: HEMATOCRIT 35.1 % (38.4-49.7); MEAN CORPUSCULAR HEMOGLOBIN 26.8 pg (31.6-35.5); MEAN CORPUSCULAR HGB CONC 31.3 g/dL (31.6-35.5); MEAN CORPUSCULAR VOLUME 85.6 fL (81.4-99.0); WHITE BLOOD CELL COUNT,WBC 10.4 K/uL (3.2-11.0)
[2024-06-11 06:39] LABS: RED BLOOD CELL COUNT 4.1 M/uL (4.14-5.76)
[2024-06-11] MEDS: Tiotropium BR/Olodaterol HCL 4 GM Inhalation Spray 2.5mcg/1 dose; 10 doses INH SCH (07:02)
[2024-06-11] MEDS: Pantoprazole 40 MG Tab.CR PO SCH (07:24)
[2024-06-11] MEDS: Magnesium Oxide 400 MG Tab PO SCH (09:31)
[2024-06-11] MEDS: Escitalopram 10 MG Tab PO SCH (09:32)
[2024-06-11] MEDS: Multivitamins with Iron/Calcium/Folic Acid/Minerals Tab PO SCH (09:32)
[2024-06-11] MEDS: Aspirin 325 MG Tab.EC PO SCH (09:32)
[2024-06-11] MEDS: Lisinopril 2.5 MG Tab PO SCH (09:33)
== END 2024-06-11 13:26 | disposition home or self-care (01) ==
LOC: JP.SDS 07:00 → JP.MS 13:13 → UNDOADMIN 13:13 → UNDODISIN 06-11 13:26 → JP.SDS 06-11 13:26
PROVIDERS: ATTEND Specialist
DX: M19.011 Primary osteoarthritis, right shoulder (principal); M24.511 Contracture, right shoulder; I10 Essential (primary) hypertension; E78.5 Hyperlipidemia, unspecified; F17.200 Nicotine dependence, unspecified, uncomplicated; Z88.5 Allergy status to narcotic agent; Z79.82 Long term (current) use of aspirin; Z79.899 Other long term (current) drug therapy
CPT/HCPCS: 23472; 36415; 73020; 80048; 85027; 94640; 97110; 97162; 97165; 97535; A9270; C1713; C1776; J0330; J0665; J0690; J1100; J1596; J1885; J2405; J2704; J2710; J3010; J7030; J7120; J3490

== ENCOUNTER 2024-12-19 07:53 | Day surgery (SDC) | payer MEDICARE, MEDICAID ==
[~2024-12-19 07:53] MED LIST changes: +Dexamethasone 4 MG/ML SDV ONE; +Glycopyrrolate 0.2 MG/ML 5 ML MDV ONE; -Midazolam 1 MG/ML 2 ML SDV ONE; +Ondansetron 4 MG/2 ML SDV ONE; +Succinylcholine 200 MG/10 ML MDV ONE; -fentaNYL 100 MCG/2 ML SDV ONE; +fentaNYL 250 MCG/5 ML SDV ONE
[2024-12-19] MEDS: Lactated Ringers 1,000 ML IV SCH (08:31)
[2024-12-19 08:57] LABS: PLATELET COUNT,PLT 204.0 K/uL (130-375); RED BLOOD CELL COUNT 4.53 M/uL (4.14-5.76); WHITE BLOOD CELL COUNT,WBC 7.3 K/uL (3.2-11.0)
[2024-12-19 09:13] LABS: BLOOD UREA NITROGEN,BUN 13.0 mg/dL (7-18); CARBON DIOXIDE,CO2 31.0 mmol/L (21-32); CHLORIDE,CL 101.0 mmol/L (100-108); CREATININE 0.8 mg/dL (0.8-1.3); EST CRCL DRUG DOSING (CG) 80.75 mL/min; ESTIMATED GFR 94.0 mL/min (>60); GLUCOSE RANDOM 101.0 mg/dL (74-106); POTASSIUM,K 4.0 mmol/L (3.6-5.2); SODIUM,NA 139.0 mmol/L (140-148)
[2024-12-19 09:18] LABS: INR 1.0; PTT,PARTIAL THROMBOPLSTIN TIME 22.0 sec (21.8-27.3)
[2024-12-19] MEDS: metroNIDAZOLE/Normal Saline 500 MG in Premix Bag 1 BAG IV ONE (09:50)
[2024-12-19] MEDS ORDERED: Propofol 200 MG/20 ML SDV ONE (10:46)
== END 2024-12-19 14:00 | disposition home or self-care (01) ==
LOC: JP.SDS 07:53
PROVIDERS: ATTEND Surgery
DX: K43.6 Other and unspecified ventral hernia with obstruction, without gangrene (principal); K40.30 Unilateral inguinal hernia, with obstruction, without gangrene, not specified as recurrent; I10 Essential (primary) hypertension; Z88.5 Allergy status to narcotic agent; Z79.899 Other long term (current) drug therapy
CPT/HCPCS: 00790; 36415; 49592; 49650; 80048; 85027; 85610; 85730; C1781; J0169; J0330; J0665; J0690; J1100; J1596; J2405; J2704; J2710; J2795; J3010; J7120; J1836; J2003; J3490

== ENCOUNTER 2025-01-09 07:39 | Emergency (ER) | payer MEDICARE, MEDICAID ==
[2025-01-09 08:25] LABS: BASOPHILS PERCENT AUTO 0.3 % (0.1-1.3); EOSINOPHILS ABSOLUTE AUTO 0.43 K/uL (0.00-0.40); EOSINOPHILS PERCENT AUTO 5.4 % (0.0-5.4); IMMATURE GRAN ABSOLUTE AUTO 0.10 K/uL (0.00-0.23); IMMATURE GRAN PERCENT AUTO 1.3 % (0.0-0.7); LYMPHOCYTES ABSOLUTE AUTO 1.20 K/uL (0.8-3.3); LYMPHOCYTES PERCENT AUTO 15.0 % (11.4-47.7); MONOCYTES ABSOLUTE AUTO 0.91 K/uL (0.20-0.90); MONOCYTES PERCENT AUTO 11.4 % (3.3-12.6); NEUTROPHILS ABSOLUTE AUTO 5.32 K/uL (1.0-7.6); NEUTROPHILS PERCENT AUTO 66.6 % (40.0-78.1); PLATELET COUNT,PLT 214 K/uL (130-375); RED BLOOD CELL COUNT 4.27 M/uL (4.14-5.76); WHITE BLOOD CELL COUNT,WBC 8.0 K/uL (3.2-11.0)
[2025-01-09 08:27] LABS: BASOPHILS ABSOLUTE AUTO 0.02 K/uL (0.00-0.10)
[2025-01-09 08:42] LABS: INR 1.0
[2025-01-09 08:46] LABS: BLOOD UREA NITROGEN,BUN 14.0 mg/dL (7-18); CARBON DIOXIDE,CO2 29.0 mmol/L (21-32); CHLORIDE,CL 98.0 mmol/L (100-108); CREATINE KINASE,CK 260.0 U/L (39-308); CREATININE 0.8 mg/dL (0.8-1.3); EST CRCL DRUG DOSING (CG) 80.75 mL/min; ESTIMATED GFR 94.0 mL/min (>60); GLUCOSE RANDOM 109.0 mg/dL (74-106); POTASSIUM,K 3.9 mmol/L (3.6-5.2); SODIUM,NA 136.0 mmol/L (140-148)
== END 2025-01-09 10:38 ==
LOC: JP.ED 07:39
DX: S00.03XA Contusion of scalp, initial encounter (principal); S80.02XA Contusion of left knee, initial encounter; I11.0 Hypertensive heart disease with heart failure; I50.9 Heart failure, unspecified; E66.9 Obesity, unspecified; J44.9 Chronic obstructive pulmonary disease, unspecified; K21.9 Gastro-esophageal reflux disease without esophagitis; Z79.899 Other long term (current) drug therapy; Z79.1 Long term (current) use of non-steroidal anti-inflammatories (NSAID); Z79.51 Long term (current) use of inhaled steroids; Z88.5 Allergy status to narcotic agent; Z68.32 Body mass index [BMI] 32.0-32.9, adult; W01.198A Fall on same level from slipping, tripping and stumbling with subsequent striking against other object, initial encounter
CPT/HCPCS: 36415; 70450; 72125; 73070; 73560; 76377; 80048; 82550; 83735; 85025; 85610; 99284; A9270